=== PATIENT | female | born 1965 | race Two or more races ===

== ENCOUNTER 2024-07-27 12:37 | Outpatient (AMB) | payer MEDICAID, SELFPAY ==
[2024-07-27 12:53] VITALS: BP 120/76; PULSE 69; RESP 16; TEMP 36.1; O2SAT 98; BMI 25.2
--- NOTE | 2024-07-27 12:53 | PD.ORTHCLVIS ---
Vital signs 07/27/24 12:53 Height 1.52 m Height Method Stated Weight 58.74 kg Weight Measurement Method Standing Scale BMI 25.2 BP 120/76 Blood Pressure Source Automatic Cuff Blood Pressure Location Right Upper Arm Position Sitting Respiration 16 Pulse 69 Pulse Source Monitor Temp 96.9 F Temp Source Temporal Artery Scan Pulse Oximetry (%) 98 Oxygen Delivery Method Room Air Med/Allergies Allergies & Medications Allergies NKA* Allergy (Uncoded 07/27/24 12:54) Medication Reconciliation ezetimibe 10 mg tablet 10 mg PO QDAY 07/27/24 [History Confirmed 07/27/24] fenofibrate 160 mg tablet 160 mg PO QDAY 07/27/24 [History Confirmed 07/27/24] ibuprofen 600 mg tablet 600 mg PO Q8H PRN 07/27/24 [History Confirmed 07/27/24] linagliptin 2.5 mg-metformin 500 mg tablet (Jentadueto) 1 tab PO BID 07/27/24 [History Confirmed 07/27/24] Exam Exam Patient is in no acute distress and is cooperative with the examination today. Breathing is nonlabored. Patient has a normal mood and affect. Bilateral extremities were evaluated and demonstrates sensation intact to light touch. Palpable pedal pulses are present. No significant edema is present. Bilateral hips were examined. The patient has no pain with log roll of the hips. Internal rotation to 30 degrees and external rotation to 30 degrees is painless. Negative FADIR. Right knee was examined today. The right knee is in reasonable alignment. Range of motion from 0-120 degrees. Knee is stable to varus and valgus as well as AP translation with <5mm. Patient has a negative McMurrays. There is no pain with patellofemoral compression and no crepitus noted. The knee is nontender to palpation. Left knee was examined today. The left knee is in [varus] alignment. Range of motion from [0-115] degrees. Knee is stable to varus and valgus as well as AP translation with <5mm. Patient has a [negative] McMurrays. There is [no] pain with patellofemoral compression and [no] crepitus noted. The knee is [tender] to palpation [medially]. [facility] from [facility] demonstrate moderate joint space narrowing and varus deformity. There is no Garertt view Assessment and Plan Problem List (1) Arthritis of left knee: Status: Acute Plan: 5Parturo is a 59-year-old female with left knee pain and left knee arthritis. We discussed nonoperative and operative options. I would first start by obtaining x-rays. 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 3 ([id number]) MA Intake Visit Data Collection New Patient or Established: New Patient (never been to [facility]) Reason for Visit:: LT KNEE PAIN Seen by Clinical Staff ONLY (RN/MA): No Wrapping Machine Operator Required: Yes PCP or OBGYN visit in last 3 months: Yes Hx Now: No Do You Feel Safe at Home: Yes Questionairres Past Medical History Past Medical History Have you ever been diagnosed with any of the following: Respiratory Problems Smoking: No Smoking Exposure: No Subjective Visit Visit for: new patient and knee Immunization / Flu Flu Vaccine in the Last 12 Months: Yes Flu Vaccine Exclusion Criteria: Already Received History of Present Illness Chief complaint: LT KNEE PAIN Date of injury / onset of symptoms: <20 YEARS Katalina is a pleasant 59-year-old female with a left knee pain. This been ongoing for over 5 years. She has had multiple injections including 3 as well as ibuprofen and other anti-inflammatories. She reports the pain is miserable. She is walking with a limp. Personal History Occupation: UNEMPLOYED BMI Counceling provided: Yes Pain Pain level (0-10): 0 Pain duration: WITH MOVEMENT Pain location: inside (medial), outside (lateral), anterior and posterior Pain quality: aching Pain timing: increases with activity Associated signs & symptoms: weakness Ambulatory data Ambulatory device: none Walking distance (minutes): 15 Treatments Number of previous injections: 2 Improvement with previous injections: Yes Improvement with NSAIDS: yes Review of Systems Review of Systems: All systems negative unless otherwise noted in HPI.
== END 2024-07-27 13:15 | disposition home or self-care (01) ==
PROVIDERS: PCP Physician Assistant; Referring Provider Physician Assistant; Supervising Provider Orthopaedic Surgery Adult Reconstructive Orthopaedic Surgery; Visit Provider Orthopaedic Surgery Adult Reconstructive Orthopaedic Surgery
DX: M17.12 Unilateral primary osteoarthritis, left knee (principal); M25.562 Pain in left knee
CPT/HCPCS: 99203; G0463

== ENCOUNTER → 2024-07-27 | Outpatient (CLI) | payer MEDICAID, SELFPAY ==
--- NOTE | 2024-07-27 14:04 | XR_ITS ---
Examination: Left knee 4 views TECHNIQUE: AP oblique lateral axial left knee 4 views Exam date and time: July 27, 2024 1441 hours INDICATIONS: Left knee pain beginning several months ago. FINDINGS: Advanced narrowing medial joint space Prominent osteopenia No fracture or dislocation IMPRESSION: Advanced narrowing medial joint space
== END | disposition home or self-care (01) ==
LOC: CDIM 13:46
PROVIDERS: PCP Family Medicine; Referring Provider Orthopaedic Surgery Adult Reconstructive Orthopaedic Surgery; Visit Provider Orthopaedic Surgery Adult Reconstructive Orthopaedic Surgery
DX: M25.862 Other specified joint disorders, left knee (principal)
CPT/HCPCS: 73564

== ENCOUNTER 2024-08-09 09:00 | Outpatient (AMB) | payer MEDICAID, SELFPAY ==
--- NOTE | 2024-08-09 08:24 | ORTHONT_ITS ---
Med/Allergies Allergies & Medications Allergies NKA* Allergy (Uncoded 08/09/24 08:25) Medication Reconciliation ezetimibe 10 mg tablet 10 mg PO QDAY 07/27/24 [History Confirmed 08/09/24] fenofibrate 160 mg tablet 160 mg PO QDAY 07/27/24 [History Confirmed 08/09/24] ibuprofen 600 mg tablet 600 mg PO Q8H PRN 07/27/24 [History Confirmed 08/09/24] linagliptin 2.5 mg-metformin 500 mg tablet (Jentadueto) 1 tab PO BID 07/27/24 [History Confirmed 08/09/24] Subjective Visit Visit for: follow up visit and x-rays Immunization / Flu Flu Vaccine in the Last 12 Months: No Flu Vaccine Exclusion Criteria: No Exclusion Criteria History of Present Illness Chief complaint: Katalina is a 59 year old female states she has pain. Patient denies medications, physical therapy or injections. Patient aware of results. Is stating her PCP told her she would need surgery and was referred to us. Patient is aware insurance does require more treatments done or tried before any surgery is done. Patient would like medication sent to [facility] in [place]. Pain Pain level (0-10): 6 Pain duration: on and off Pain location: inside (medial) Pain quality: aching Pain timing: increases with activity Associated signs & symptoms: weakness Ambulatory data Ambulatory device: none Treatments Improvement with previous injections: No Improvement with PT: No Improvement with NSAIDS: no Review of Systems Review of Systems: All systems negative unless otherwise noted in HPI. Office Procedures GNS Level of Care Nursing/Assessment Patient Status: Established Patient Nursing Assessment/Reassesment: Medication Reconciliation, Update PMH in EMR and Vital Signs Coordination of Care: Complex Care and Chronic Disease 1-5, Consent,records obtained, informed consent, Education Simp Pt/Fam, 1 Ins Authorization, Results/Orders obtained and Staff clarify orders Established Patient Charge Established Patient Point Assignment: 105 Surgical Proc/IM SQ injection Major Surgical Procedure: Yes
== END 2024-08-09 10:00 | disposition home or self-care (01) ==
LOC: HODSRG 08-20 14:11
PROVIDERS: PCP Orthopaedic Surgery Adult Reconstructive Orthopaedic Surgery; Referring Provider Orthopaedic Surgery Adult Reconstructive Orthopaedic Surgery; Supervising Provider Orthopaedic Surgery Adult Reconstructive Orthopaedic Surgery; Visit Provider Orthopaedic Surgery Adult Reconstructive Orthopaedic Surgery
DX: R52 Pain, unspecified (principal)
CPT/HCPCS: 99213; G0463